=== PATIENT | female | born 2005 | race Caucasian/White ===

== ENCOUNTER 2024-11-12 18:31 | Emergency (ER) | payer MEDICAID, SELFPAY ==
[2024-11-12 18:32] VITALS: BP 133/78; PULSE 120; RESP 20; TEMP 36.1; O2SAT 97; BMI 40.0
--- NOTE | 2024-11-12 20:45 | EDS_ITS ---
HPI History of Present Illness Chief Complaint: Abscess Informant: patient Onset/Context/Timing Onset: Days Context: Gradual Onset Timing: Continuous Current Severity: Mild Maximum Severity: Mild Narrative Narrative: 19-year-old female has pain in her tailbone suspect secondary pilonidal cyst or abscess. Has been going on since last . 5 days now. No prior history. No fall or trauma. No fever or chills. No other complaints. Prior similar symptoms: No Recent Illness/Hospitalization: No PFSH PFSH Medical History Anxiety Hypothyroid Allergy/AdvReac Type Severity Reaction Status Date / Time No Known Allergies Allergy Verified 11/12/24 18:32 Family History no significant family his Social History current occupational status: employed Smoking Status: Never smoker ROS ROS ED ROS Narrative Denies recent illness. Constitutional Constitutional ED: Denies chills or fever(s) Eyes Eyes: Denies blurry vision ENT ENT ED: Denies ear pain Cardiovascular Cardiovascular: Denies chest pain Respiratory/Chest Respiratory/Chest: Denies cough or dyspnea Gastrointestinal Gastrointestinal: Denies abdominal pain Genitourinary Genitourinary ED: Denies dysuria or hematuria Musculoskeletal Musculoskeletal: Denies arthralgias Integumentary Denies abscess or Abrasions Neurologic Neurologic: Denies headache(s) Psychiatric Psychiatric: Denies depression Endocrine Endocrinology: Denies cold intolerance Hematologic/Lymphatic Hematologic/Lymphatic: Reports none Allergic/Immunologic Allergic/Immunologic ED: Denies mouth swelling, tongue swelling or urticaria EXAM Physical Exam Narrative Exam Narrative: 19-year-old female lying supine. Vital signs are stable she is afebrile she does not look septic toxic no acute distress. H EENT exam pupils round reactive light. Nasal ring. Moist mucous membranes. Neck nontender. Prior thyroid incision is well-healed. Trachea midline. Lungs clear to auscultation. Heart regular rhythm rate about 100 now. The initial vital signs were taken 2 hours ago. Abdomen is soft and nontender. No peritoneal signs. Moving all 4 extremities. Nontender no edema normal strength. Normal range of motion. Back at her buttock cleft there is an area of tenderness and redness consistent with either pilonidal abscess or cyst. It will need to be drained. Neurologically she is awake alert no focal motor deficits. Const Vital Signs: 11/12/24 18:32 Temperature 96.9 F L Temperature Source Temporal Pulse Rate 120 H Respiratory Rate 20 H Blood Pressure 133/78 H Blood Pressure Mean 96 Pulse Ox 97 Oxygen Delivery Method Room Air Positive well nourished and well developed; Negative for cachectic, contractures or unkempt General Appearance ED: well developed and NAD; Negative for unkempt, cachectic, contractures, cyanotic, diaphoretic or pallor Nutritional Appearance: Negative for cachectic HEENT Reports moist mucous membranes Eyes PERRL Neck no lymphadenopathy, supple and no JVD Chest Wall inspection of chest normal and palpation of chest normal Resp normal respiratory effort and clear to auscultation bilaterally Cardio regular rate, regular rhythm, S1 normal heart sound, S2 normal heart sound and no murmurs GI normal to inspection, nondistended, normoactive bowel sounds, non-tender, non- distended and no masses Auscultation: normoactive bowel sounds Palpation: soft; Negative for tender, guarding or rebound tenderness present Back/Spine no CVA tenderness Back/Spine Narrative: Area of her tailbone tenderness redness consistent with a pilonidal cyst or abscess. Extremity normal to inspection General Extremety ED: Negative for edema or tenderness General Extremity: Negative for edema Neuro oriented x3 and CN's II-XII intact bilaterally Sensorium / Orientation: Negative for alert Motor Exam: strength 5/5 throughout; Negative for general weakness or strength abnormal Psych mental status grossly normal Appearance: Negative for unkempt Attitude: No agitated Mood & Affect: Negative for depressed, anxious or tearful Skin no rashes or lesions noted and no wounds General Skin Exam: Negative for jaundice or pallor Lesions: No lesion noted Image ED - Body Diagram Man: 2 1. Tenderness to tailbone area. Mild redness. Consistent with a pilonidal abscess or cyst. MDM MDM MDM Narrative Medical decision making narrative: 19-year-old with tender area at her tailbone region consistent with pilonidal abscess or cyst. Area be locally anesthetized. Cleaned. Incised and drained. I drained the pilonidal abscess. There was pus and blood. Irrigated. Placed about 8 inches of the half-inch packing material. Patient was instructed on wound care. Surgery follow-up. Motrin Tylenol for pain. Return if worse. Placed on Keflex 4 times a day for 10 days. History & Record Review Discussion w/independent historian: Patient Procedures Other Procedures Procedure(s): Pilonidal abscess I&D. Area cleaned with Shur-Clens. Local anesthetized with lidocaine. I made about a 1 inch vertical incision. Expressed about 4 to 5 cc of pus and blood. Probed the area and broke up any loculations. Irrigated the wound with saline. Packed it with about 8 inches of quarter inch gauze. Patient tolerated procedure well. She was instructed on wound care and follow-up and return if worse. She will be discharged home on Keflex 4 times daily for 10 days. Discharge Plan Triage Chief Complaint: Abscess ED Provider: Mumtaz Manzano Dx/Rx/DC Orders Clinical Impression: Encounter for recheck of abscess following incision and drainage Instructions: ED Abscess Incision And Drainage Primary Care Provider: Randall Parekh Referrals: Randall Parekh DO [Primary Care Provider] - Tyler Mcghee MD [Med Staff - Active Staff] - 3-5 Days Activity Restrictions/Additional Instructions: Pilonidal abscess. Pull the packing material out in 4 days and throat away. If it falls out just leave it out. Motrin and Tylenol for pain. Warm soaks in a bathtub or lateral hot shower hit that area. Call and follow-up with a general surgeon Dr. Tyler Mcghee. Call their office tomorrow to get appointment to be seen within the next week. The antibiotic Keflex 4 times a day for 10 days. Return if you are feeling worse. This should progressively start feeling better. Print Language: Citizen Of [place] Disposition Disposition: Home, Self Care
[2024-11-12] MEDS: Lidocaine 1% (20 ml mdv) 20 ML Vial 10 ML INFILT (22:05)
[2024-11-12 22:10] VITALS: BP 132/74; PULSE 87; RESP 18; TEMP 36.7; O2SAT 98
[2024-11-12] MEDS: Cephalexin 250 MG Capsule 500 MG PO (22:12)
== END 2024-11-12 22:13 | disposition home or self-care (01) ==
PROVIDERS: Emergency Provider Emergency Medicine; PCP Family Medicine; Visit Provider Emergency Medicine
DX: L05.01 Pilonidal cyst with abscess (principal)
CPT/HCPCS: 10080; 99283

== ENCOUNTER → 2024-11-15 | Outpatient (CLI) | payer MEDICAID, SELFPAY | END | disposition home or self-care (01) | LOC: LABSPEC 15:26 | PROVIDERS: PCP Family Medicine; Referring Provider Surgery; Visit Provider Surgery | DX: L05.91 Pilonidal cyst without abscess (principal) | CPT/HCPCS: 87070; 87075; 87205 ==